=== PATIENT | female | born 1980 | race Caucasian/White ===

== ENCOUNTER 2018-05-25 10:34 | Emergency (ER) | payer OTHER ==
[2018-05-25 10:49] VITALS: O2SAT 100; BMI 19.5
[2018-05-25] MEDS ORDERED: Lidocaine 5% Patch TD STA (11:35)
[2018-05-25] MEDS ORDERED: Lidocaine 5% Patch TD ONE (11:41)
--- NOTE | 2018-05-25 11:55 | C.PDOC ---
History Of Present Illness 37 y/o female c/o left lower back pain x 3 days with no known preceding injury. pt has 2 yo child whom she lifts. no radiation of pain, no numbness, tingling or weakness in le. no bladder or bowel dysfunction. no abd pain, n/v , fever or chills. Time Seen by Provider: 05/25/18 11:16 Chief Complaint (Nursing): Back Pain History Per: Patient History/Exam Limitations: no limitations Onset/Duration Of Symptoms: Days Current Symptoms Are (Timing): Still Present Quality Of Discomfort: "Pain" Associated Symptoms: denies: Incontinence, New Weakness, New Numbness Additional History Per: Patient Past Medical History Reviewed: Historical Data, Nursing Documentation, Vital Signs Vital Signs: Last Vital Signs Temp 97.6 F 05/25/18 10:48 Pulse 62 05/25/18 10:48 Resp 17 05/25/18 10:48 BP 112/72 05/25/18 10:48 Pulse Ox 100 05/25/18 12:22 - Medical History PMH: No Chronic Diseases Surgical History: No Surg Hx - [facility] Procedures EXTRACTION OF POC, LOW CERVICAL, OPEN APPROACH (06/01/16) LOW CERVICAL (05/22/13) TETANUS TOXOID ADMINIST (12/18/13) Family History: States: No Known Family Hx - Social History Hx Tobacco Use: No Hx Alcohol Use: No Hx Substance Use: No - Immunization History Hx Tetanus Toxoid Vaccination: No Hx Influenza Vaccination: No Hx Pneumococcal Vaccination: No Review Of Systems Genitourinary: Negative for: Incontinence Musculoskeletal: Positive for: Back Pain. Negative for: Leg Pain Neurological: Negative for: Weakness, Numbness Physical Exam - Physical Exam Appears: Non-toxic, No Acute Distress Skin: Normal Color Head: Normacephalic Eye(s): bilateral: Normal Inspection Neck: Supple Chest: Symmetrical Cardiovascular: Rhythm Regular Respiratory: Normal Breath Sounds Gastrointestinal/Abdominal: Normal Exam, Soft Back: No CVA Tenderness, No Vertebral Tenderness, Paraspinal Tenderness (left paralumbar), No Straight Leg Raising Extremity: Normal ROM (FROM bilateral lower extremities), No Pedal Edema, No Calf Tenderness, No Deformity, No Swelling Neurological/Psych: Oriented x3, Normal Motor, Normal Sensation ED Course And Treatment O2 Sat by Pulse Oximetry: 100 (RA) Pulse Ox Interpretation: Normal Medical Decision Making Medical Decision Making: Plan: -- Urinalysis -- Motrin 600mg PO -- Lidoderm patch 1237 ua neg. upreg neg. will d/c home with nsaids and muscle relaxant. Disposition Counseled Patient/Family Regarding: Studies Performed, Diagnosis, Need For Followup, Rx Given - Disposition Disposition: HOME/ ROUTINE Disposition Time: 12:39 Condition: GOOD Additional Instructions: Please remove lidoderm patch after 12 hours. Take ibuprofen for pain as directed with food. Take muscle relaxant at bedtime- makes you sleepy. Follow up with your doctor in a few days. Avoid heavy lifting. Warm compress to area several times a day. Prescriptions: Cyclobenzaprine [Cyclobenzaprine HCl] 10 mg PO HS #7 tab Ibuprofen [Motrin] 600 mg PO TID #30 tab Instructions: Muscle Spasms (DC) Forms: [facility] ([place]), General Discharge Instructions - Clinical Impression Clinical Impression: Muscle spasm of back - PA / QA TEST ANALYST / Resident Statement MD/DO has reviewed & agrees with the documentation as recorded. - Scribe Statement The provider has reviewed the documentation as recorded by the Hayedn Badillo Provider Attestation: All medical record entries made by the Hayden were at my direction and personally dictated by me. I have reviewed the chart and agree that the record accurately reflects my personal performance of the history, physical exam, medical decision making, and the department course for this patient. I have also personally directed, reviewed, and agree with the discharge instructions and disposition.
[2018-05-25 12:14] LABS: SQUAMOUS EPITHIAL 2 /hpf (0-5); URINE BILIRUBIN NEGATIVE (NEGATIVE); URINE BLOOD NEGATIVE (NEGATIVE); URINE CLARITY Clear (Clear); URINE COLOR Straw (YELLOW); URINE GLUCOSE (UA) NORMAL (Normal); URINE LEUKOCYTE ESTERASE NEG Leu/uL (Negative); URINE PROTEIN NEGATIVE (NEGATIVE); URINE UROBILINOGEN NORMAL mg/dL (0.2-1.0)
[2018-05-25 12:44] VITALS: BP 96/62; PULSE 60; RESP 18; TEMP 98.7
== END 2018-05-25 12:59 | disposition home or self-care (01) ==
LOC: C.ER 10:34
DX: M62.830 Muscle spasm of back (principal)

== ENCOUNTER 2018-11-12 09:06 | Emergency (ER) | payer OTHER | END 2018-11-12 09:50 | disposition home or self-care (01) | LOC: C.ER 09:06 ==